=== PATIENT | male | born 1965 | race Caucasian/White ===

== ENCOUNTER 2020-09-17 11:51 | Inpatient (IN) | payer BC ==
[~2020-09-17] VITALS: Ht 177.8 cm; Wt 91.8 kg
[2020-09-17 12:00] VITALS: BP 132/85
[2020-09-17 12:25] LABS: BILIRUBIN Negative (Negative); BLOOD Negative (Negative); CLARITY Clear (Clear); COLOR Yellow (Yellow); GLUCOSE Negative (Negative); KETONE Negative (Negative); LEUKO ESTERASE Negative (Negative); NITRITE Negative (Negative); PH 5.5 (4.5-8.0); UROBILINOGEN 0.2 E.U./dl (0.0-1.0)
[2020-09-17 12:31] LABS: BACTERIA TRACE; EPITHELIAL CELLS 0-2; RBC 0-2 rbc/hpf (0-2); WBC 0-2 wbc/hpf (0-5)
[2020-09-17 12:33] LABS: URINE AMPHETAMINES < 1000 (1000ng/ml); URINE BARBITURATES > 200 (200ng/ml); URINE BENZODIAZEPINES < 200 (200ng/ml); URINE CANNABINOIDS (THC) < 50 (50ng/ml); URINE COCAINE < 300 (300ng/ml); URINE METHADONE < 300 (300ng/ml); URINE OPIATES < 300 (300ng/ml)
[2020-09-17 12:35] LABS: URINE PHENCYCLIDINE < 25 (25ng/ml)
[2020-09-17 12:52] LABS: BASO # 0.1 10*3/uL (0.0-0.1); BASO % 1.1 % (0.0-1.0); EOS # 0.2 10*3/uL (0.0-0.4); EOS % 4.3 % (1.0-4.0); HEMATOCRIT 40.1 % (42.0-52.0); LYMPH # 0.9 10*3/uL (1.3-4.4); LYMPH % 18.4 % (27.0-41.0); MEAN CORPUSCULAR HGB 31.9 pg (27.0-31.0); MEAN CORPUSCULAR HGB CONC 34.7 g/dl (33.0-37.0); MEAN PLATELET VOLUME 11.2 fl (9.6-12.3); MONO # 0.5 10*3/uL (0.1-1.0); MONO % 11.3 % (3.0-9.0); NEUT % 64.7 % (47.0-73.0); PLATELET COUNT AUTOMATED 97 10*3/uL (130-400); RED BLOOD COUNT 4.36 10*6/uL (4.50-5.90); RED CELL DISTRI WIDTH 11.3 % (0-14.5); WHITE BLOOD COUNT 4.6 10*3/uL (4.8-10.8)
[2020-09-17 13:01] LABS: INTERNATIONAL NORM RATIO 1.1 (2.0-3.5)
[2020-09-17 13:09] LABS: ALBUMIN 3.6 gm/dl (3.1-4.5); ALKALINE PHOSPHATASE 80 U/L (45-117); BUN 12 mg/dl (7-24); CHLORIDE 100 mmol/L (98-107); POTASSIUM 4.2 mmol/L (3.5-5.1); SGOT/AST 176 IU/L (3-35); SGPT/ALT 142 U/L (12-78); SODIUM 136 mmol/L (136-145); TOTAL PROTEIN 8.1 gm/dL (6.4-8.2)
[2020-09-17 13:13] LABS: ETHYL ALCOHOL < 3.0 mg/dl (<3); TROPONIN I < 0.015 ng/ml (<0.045)
[2020-09-17 18:25] VITALS: BP 140/88
[2020-09-18] VITALS (7 sets, daily range): BP systolic 125–143; BP diastolic 84–99
[2020-09-18 05:52] LABS: ALBUMIN 3.8 gm/dl (3.1-4.5); ALKALINE PHOSPHATASE 80 U/L (45-117); BUN 12 mg/dl (7-24); CHLORIDE 103 mmol/L (98-107); POTASSIUM 3.7 mmol/L (3.5-5.1); SGOT/AST 204 IU/L (3-35); SGPT/ALT 153 U/L (12-78); SODIUM 136 mmol/L (136-145); TOTAL PROTEIN 8.3 gm/dL (6.4-8.2)
[2020-09-19 04:25] VITALS: BP 129/84
[2020-09-19 05:44] LABS: ALBUMIN 3.5 gm/dl (3.1-4.5); ALKALINE PHOSPHATASE 74 U/L (45-117); BUN 14 mg/dl (7-24); CHLORIDE 100 mmol/L (98-107); CREATININE 0.81 mg/dL (0.70-1.30); POTASSIUM 3.6 mmol/L (3.5-5.1); SGOT/AST 180 IU/L (3-35); SGPT/ALT 150 U/L (12-78); SODIUM 135 mmol/L (136-145); TOTAL PROTEIN 7.8 gm/dL (6.4-8.2)
[2020-09-19 06:19] LABS: BASO # 0.1 10*3/uL (0.0-0.1); BASO % 1.4 % (0.0-1.0); EOS # 0.4 10*3/uL (0.0-0.4); EOS % 5.5 % (1.0-4.0); HEMATOCRIT 42.6 % (42.0-52.0); LYMPH # 1.3 10*3/uL (1.3-4.4); LYMPH % 19.7 % (27.0-41.0); MEAN PLATELET VOLUME 11.1 fl (9.6-12.3); MONO # 0.9 10*3/uL (0.1-1.0); MONO % 13.8 % (3.0-9.0); NEUT # 3.8 10*3/uL (2.3-7.9); NEUT % 59.3 % (47.0-73.0); RED BLOOD COUNT 4.53 10*6/uL (4.50-5.90); RED CELL DISTRI WIDTH 11.6 % (0-14.5); WHITE BLOOD COUNT 6.4 10*3/uL (4.8-10.8)
[2020-09-19 06:22] LABS: PLATELET COUNT AUTOMATED 133 10*3/uL (130-400)
[2020-09-19 08:08] VITALS: BP 138/97
[2020-09-19 08:18] VITALS: BP 118/83
[2020-09-19 12:00] VITALS: BP 137/88
[2020-09-19 15:58] VITALS: BP 127/87
[2020-09-19 20:00] VITALS: BP 133/83
[2020-09-20] VITALS: BP 116/83
[2020-09-20 04:00] VITALS: BP 128/94
[2020-09-20 08:00] VITALS: BP 144/88
[2020-09-20 12:00] VITALS: BP 128/78
[2020-09-20 16:00] VITALS: BP 139/96
[2020-09-20 20:00] VITALS: BP 155/50
[2020-09-21] VITALS: BP 144/90
[2020-09-21 08:00] VITALS: BP 149/89
[2020-09-21] MEDS ORDERED: MIRTAZAPINE15 M2 PO (13:06)
[2020-09-21] MEDS ORDERED: QUETIAPINE FUM100 M3 PO (13:06)
== END 2020-09-21 13:25 | disposition home or self-care (01) | DRG 897 ==
LOC: ED 11:51 → EDHOLD 14:31 → ICCU 14:31 → 5E 14:31 → EDHOLD 19:35 → ICCU 09-19 07:49 → 5E 09-20 15:26
PROVIDERS: Hospitalist; Physician Assistant; Student in an Organized Health Care Education/Training Program; ADMIT Internal Medicine; ATTEND Internal Medicine
DX: F10.231 Alcohol dependence with withdrawal delirium (principal); E87.1 Hypo-osmolality and hyponatremia; F12.10 Cannabis abuse, uncomplicated; F41.9 Anxiety disorder, unspecified; D69.6 Thrombocytopenia, unspecified; R74.01 Elevation of levels of liver transaminase levels; D64.9 Anemia, unspecified; D72.819 Decreased white blood cell count, unspecified; F31.9 Bipolar disorder, unspecified; Z83.3 Family history of diabetes mellitus; Z68.30 Body mass index [BMI] 30.0-30.9, adult